=== PATIENT | female | born 1945 | race Caucasian/White ===

== ENCOUNTER 2023-01-18 07:38 | Day surgery (SDC) | payer MEDICARE, SELFPAY ==
[2023-01-13 10:19] VITALS: BMI 25.5
--- NOTE | 2023-01-15 07:47 | MHC.SHP ---
Pre-Procedural Eval Section A Date of Service: 01/15/23 The patient is an INPATIENT: No Changes since office visit: No Cold of Flu in the past 2 weeks, No New Medical Problems, No Changes in Medication and No Patient answered all questions The History & Physical has been completed within 30 days and I have reviewed it.: Yes Section B Chief Complaint: Age-related nuclear cataract, left eye Allergies: Allergies Allergy/AdvReac Type Severity Reaction Status Date / Time enoxaparin [From Lovenox] Allergy Intermediate funny Verified 01/13/23 09:54 sensation latex Allergy Intermediate Hypertensio Verified 01/13/23 09:51 n metronidazole [Flagyl] Allergy Intermediate Rash Verified 01/13/23 09:51 rosuvastatin [Crestor] AdvReac Intermediate loss of Verified 01/13/23 09:51 muscle tone Plan Diagnosis/Plan: Unchanged I have reviewed the history and physical and performed a pertinent physical examination on my patient. No changes have occurred unless specified. Time Spent With Patient Time: Total time managing care of this patient today ____ minutes.
--- NOTE | 2023-01-15 10:48 | P.CONAN_ITS ---
Documented by User: Aurelia Hendrix NP 01/15/23 10:49 HPI - Anesthesia Eval Consult details Narrative: 78yo F for Left Cataract Extraction IOL Insertion PCP cleared No previous cataract on record PMHx: CHF, CAD, Aortic Stenosis PMFSH Active Problems Active Problems: All Active Problems (Updated 01/13/23 @ 10:22 by Pily Corbin RN) Atopic dermatitis (Acute) Past Medical History Medical History (Updated 01/13/23 @ 10:22 by Pily Corbin RN) CHF (congestive heart failure) Aortic stenosis Stevens's palsy Osteoporosis Hypothyroid Elevated cholesterol HTN (hypertension) Pulmonary embolism Diverticulosis Angina pectoris CAD (coronary artery disease) Surgical History Surgical History (Updated 01/13/23 @ 09:56 by Pily Corbin RN) Hx of heart artery stent H/O colonoscopy History of open reduction and internal fixation (ORIF) procedure Hx of cholecystectomy Social History Social History Patient Tobacco Use Status: Never used Tobacco Use of substances other than those prescribed or required for medical reasons: No Advance Directives Information Provided: Yes Advance Directives on File: No Nutrition Risks: Surgical patient >75years Meds Allergies Allergy/AdvReac Type Severity Reaction Status Date / Time enoxaparin [From Lovenox] Allergy Intermediate funny Verified 01/13/23 09:54 sensation latex Allergy Intermediate Hypertensio Verified 01/13/23 09:51 n metronidazole [Flagyl] Allergy Intermediate Rash Verified 01/13/23 09:51 rosuvastatin [Crestor] AdvReac Intermediate loss of Verified 01/13/23 09:51 muscle tone Home Medications Medication Instructions Recorded Confirmed Last Taken Type levothyroxine 112 mcg tablet 112 mcg PO BEDTIME 09/04/20 01/13/23 Unknown History aspirin 81 mg tablet,delayed 81 mg PO DAILY 01/13/23 01/13/23 Unknown History release clopidogrel 75 mg tablet 75 mg PO DAILY 01/13/23 01/13/23 Unknown History isosorbide mononitrate 10 mg tablet 10 mg PO DAILY 01/13/23 01/13/23 Unknown History nitroglycerin 0.4 mg sublingual 0.4 mg sublingual Q5M PRN Chest 01/13/23 01/13/23 Unknown History tablet Pain Exam Exam Date and Time: January 15, 2023 1048 Height,Weight and Vital Signs: Height 4 ft 11 in Weight 57.3 kg Assessment and Plan Assessment Anesthesia Assessment: Chart Reviewed Documented by User: Riley Gray MD 01/18/23 08:26 [facility] Past Medical History Medical History (Updated 01/13/23 @ 10:22 by Pily Corbin RN) CHF (congestive heart failure) Aortic stenosis Stevens's palsy Osteoporosis Hypothyroid Elevated cholesterol HTN (hypertension) Pulmonary embolism Diverticulosis Angina pectoris CAD (coronary artery disease) Family History Family history of problems with anesthesia: No Surgical History Surgical History (Updated 01/13/23 @ 09:56 by Pily Corbin RN) Hx of heart artery stent H/O colonoscopy History of open reduction and internal fixation (ORIF) procedure Hx of cholecystectomy History of Problems with Anesthesia: No Social History Social History Patient Tobacco Use Status: Never used Tobacco Use of substances other than those prescribed or required for medical reasons: No Advance Directives Information Provided: Yes Advance Directives on File: No Nutrition Risks: Surgical patient >75years Meds Allergies Allergy/AdvReac Type Severity Reaction Status Date / Time enoxaparin [From Lovenox] Allergy Intermediate funny Verified 01/13/23 09:54 sensation latex Allergy Intermediate Hypertensio Verified 01/13/23 09:51 n metronidazole [Flagyl] Allergy Intermediate Rash Verified 01/13/23 09:51 rosuvastatin [Crestor] AdvReac Intermediate loss of Verified 01/13/23 09:51 muscle tone Home Medications Medication Instructions Recorded Confirmed Last Taken Type levothyroxine 112 mcg tablet 112 mcg PO BEDTIME 09/04/20 01/13/23 Unknown History aspirin 81 mg tablet,delayed 81 mg PO DAILY 01/13/23 01/13/23 Unknown History release clopidogrel 75 mg tablet 75 mg PO DAILY 01/13/23 01/13/23 Unknown History isosorbide mononitrate 10 mg tablet 10 mg PO DAILY 01/13/23 01/13/23 Unknown History nitroglycerin 0.4 mg sublingual 0.4 mg sublingual Q5M PRN Chest 01/13/23 01/13/23 Unknown History tablet Pain Exam Airway Mallampati Class: II TM Dist: >3cm Neck ROM: Full Loose/Missing/Broken Teeth: No Heart: [id number] Lungs: cta b/l Assessment and Plan Assessment Anesthesia Assessment: Anesthesia Plan Discussed Final Anesthetic Review Family History of Problems with Anesthesia: No History of Problems with Anesthesia: No NPO: Yes ASA Class: III Final Preanesthetic Review: No Changes in Pt Med Stat, Meds/Allgs Chart Reviewed, Consent Obtained/Reviewed and Anes Risks/Benef Reviewed Patient Risk: Intermediate Procedure Risk: Intermediate Assessment/Block/Sedation in SS: Assess/Block/Sedation-SS Anesthetic Plan Anesthetic Plan: MAC: and Agree w/ Assess. and Plan Disposition: Standard PACU
[2023-01-18] MEDS: Tetracaine HCl/PF 0.5% Oph Sol 4 ML DROPS 1 DROP EYE-LEFT (08:07)
[2023-01-18] MEDS: Phenylephrine HCL 2.5% Oph SoL 2 ML BOTTLE 1 DROP EYE-LEFT ×3 (08:07→08:15)
[2023-01-18] MEDS: Lactated Ringers 500 ML 50 ML IV (08:07)
[2023-01-18] MEDS: Tropicamide 1 % Ophth Sol 3 ML BTL 1 DROP EYE-LEFT ×3 (08:08→08:15)
[2023-01-18] MEDS: Cyclopentolate 1 % Ophth Sol 2 ML DRPBTL 1 DROP EYE-LEFT ×3 (08:08→08:15)
[2023-01-18] MEDS: Ketorolac Tromethamine 0.5% Op 5 ML DROPS 1 DROP EYE-LEFT ×3 (08:10→08:15)
[2023-01-18 08:12] VITALS: BP 122/49; PULSE 57; RESP 18; TEMP 36.7; O2SAT 98
--- NOTE | 2023-01-18 09:06 | HO.PNOPHT ---
Ophthalmology Procedure Procedure Date of Service: 01/18/23 Ophthalmology Viscoelastic: Healtj Duet Dual Pack Pro Ophthalmology Lenses: TECASHLEY [id number] (18) Procedure Notes: PREOPERATIVE DIAGNOSIS: Decreased visual acuity left eye secondary to cataract POSTOPERATIVE DIAGNOSIS: Same PROCEDURE: Left cataract extraction with intraocular lens insertion SURGEON: Marco Zheng M.D. ANESTHESIA: Topical/MAC ESTIMATED BLOOD LOSS: None COMPLICATIONS: None After obtaining informed consent, the patient was brought to the operation room suite and placed in the supine position. After adequate sedation per anesthesia, topical drops of Tetracaine were given to the left eye. The eye was then prepped and draped in the usual sterile fashion. The operating room microscope was then positioned over the operative eye and a lid speculum placed. A paracentesis was created. Viscoelastic was then instilled into the anterior chamber. A three plane incision was then created temporally, utilizing a 2.85 mm keratome. Capsulotomy forceps were then utilized to create a circular tear capsulotomy. Hydrodissection and hydrodelineation were carried out until adequate mobilization of the nucleus occurred. Phacoemulsification was then utilized to remove the dense central nucleus followed by removal of the cortical material utilizing the automated aspiration irrigation unit. Viscoat elastic was instilled into the posterior capsular bag followed by placement of a posterior chamber intraocular lens without difficulty. The residual Viscoat elastic was then removed utilizing the automated IA machine. The wound was check and found to be watertight. The patient tolerated the procedure well and the lid speculum was removed. Intracameral injection of Vigamox 0.1 mL followed by a subtenon injection of Kenalog-40 0.2 mL were administered. The patient will be seen in the a.m.
[2023-01-18 09:27] VITALS: BP 107/48; PULSE 59; RESP 16; TEMP 36.6; O2SAT 95
== END 2023-01-18 09:40 | disposition home or self-care (01) ==
PROVIDERS: PCP Nurse Practitioner Adult Health; Visit Provider Ophthalmology
PROC: (CPT 66985; principal; 2023-01-18 09:10)
DX: H25.12 Age-related nuclear cataract, left eye (principal); H54.7 Unspecified visual loss; I10 Essential (primary) hypertension; E78.5 Hyperlipidemia, unspecified; E03.9 Hypothyroidism, unspecified; Z86.711 Personal history of pulmonary embolism; Z79.82 Long term (current) use of aspirin; Z79.899 Other long term (current) drug therapy
CPT/HCPCS: 66984; J2250; J3010; J3301; V2632

== ENCOUNTER 2023-02-01 07:17 | Day surgery (SDC) | payer MEDICARE, SELFPAY ==
[2023-01-13 10:24] VITALS: BMI 25.5
--- NOTE | 2023-01-28 13:43 | HO.ANESPROP2 ---
Documented by User: Aurelia Hendrix NP 01/28/23 13:44 HPI - Anesthesia Eval Consult details Narrative: 78yo F for Right Cataract Extraction IOL Insertion PCP cleared Left eye 01/18/23 with MAC: Fent 25, Midaz 1 PMFSH Active Problems Active Problems: All Active Problems (Updated 01/13/23 @ 10:22 by Pily Corbin RN) Atopic dermatitis (Acute) Past Medical History Medical History (Updated 01/13/23 @ 10:22 by Pily Corbin RN) CHF (congestive heart failure) Aortic stenosis Stevens's palsy Osteoporosis Hypothyroid Elevated cholesterol HTN (hypertension) Pulmonary embolism Diverticulosis Angina pectoris CAD (coronary artery disease) Family History Family history of problems with anesthesia: No Surgical History Surgical History (Updated 01/13/23 @ 09:56 by Pily Corbin RN) Hx of heart artery stent H/O colonoscopy History of open reduction and internal fixation (ORIF) procedure Hx of cholecystectomy History of Problems with Anesthesia: No Social History Social History Patient Tobacco Use Status: Never used Tobacco Use of substances other than those prescribed or required for medical reasons: No Advance Directives Information Provided: Yes (brochure mailed) Advance Directives on File: No Nutrition Risks: Surgical patient >75years Meds Allergies Allergy/AdvReac Type Severity Reaction Status Date / Time enoxaparin [From Lovenox] Allergy Intermediate funny Verified 01/13/23 09:54 sensation latex Allergy Intermediate Hypertensio Verified 01/13/23 09:51 n metronidazole [Flagyl] Allergy Intermediate Rash Verified 01/13/23 09:51 rosuvastatin [Crestor] AdvReac Intermediate loss of Verified 01/13/23 09:51 muscle tone Home Medications Medication Instructions Recorded Confirmed Last Taken Type levothyroxine 112 mcg tablet 112 mcg PO BEDTIME 09/04/20 01/13/23 Unknown History aspirin 81 mg tablet,delayed 81 mg PO DAILY 01/13/23 01/13/23 Unknown History release clopidogrel 75 mg tablet 75 mg PO DAILY 01/13/23 01/13/23 Unknown History isosorbide mononitrate 10 mg tablet 10 mg PO DAILY 01/13/23 01/13/23 Unknown History nitroglycerin 0.4 mg sublingual 0.4 mg sublingual Q5M PRN Chest 01/13/23 01/13/23 Unknown History tablet Pain Exam Exam Date and Time: January 28, 2023 1343 Height,Weight and Vital Signs: Height 4 ft 11 in Weight 57.3 kg Assessment and Plan Assessment Anesthesia Assessment: Chart Reviewed Final Anesthetic Review Family History of Problems with Anesthesia: No History of Problems with Anesthesia: No Documented by User: Letty Underwood MD 02/01/23 08:47 [facility] Past Medical History Medical History (Updated 01/13/23 @ 10:22 by Pily Corbin RN) CHF (congestive heart failure) Aortic stenosis Stevens's palsy Osteoporosis Hypothyroid Elevated cholesterol HTN (hypertension) Pulmonary embolism Diverticulosis Angina pectoris CAD (coronary artery disease) Surgical History Surgical History (Updated 01/13/23 @ 09:56 by Pily Corbin RN) Hx of heart artery stent H/O colonoscopy History of open reduction and internal fixation (ORIF) procedure Hx of cholecystectomy Social History Social History Patient Tobacco Use Status: Never used Tobacco Use of substances other than those prescribed or required for medical reasons: No Advance Directives Information Provided: Yes (brochure mailed) Advance Directives on File: No Nutrition Risks: Surgical patient >75years Meds Allergies Allergy/AdvReac Type Severity Reaction Status Date / Time enoxaparin [From Lovenox] Allergy Intermediate funny Verified 01/13/23 09:54 sensation latex Allergy Intermediate Hypertensio Verified 01/13/23 09:51 n metronidazole [Flagyl] Allergy Intermediate Rash Verified 01/13/23 09:51 rosuvastatin [Crestor] AdvReac Intermediate loss of Verified 01/13/23 09:51 muscle tone Home Medications Medication Instructions Recorded Confirmed Last Taken Type levothyroxine 112 mcg tablet 112 mcg PO BEDTIME 09/04/20 01/13/23 Unknown History aspirin 81 mg tablet,delayed 81 mg PO DAILY 01/13/23 01/13/23 Unknown History release clopidogrel 75 mg tablet 75 mg PO DAILY 01/13/23 01/13/23 Unknown History isosorbide mononitrate 10 mg tablet 10 mg PO DAILY 01/13/23 01/13/23 Unknown History nitroglycerin 0.4 mg sublingual 0.4 mg sublingual Q5M PRN Chest 01/13/23 01/13/23 Unknown History tablet Pain Exam Airway Mallampati Class: II TM Dist: >3cm Neck ROM: Full Assessment and Plan Assessment Anesthesia Assessment: Anesthesia Plan Discussed Final Anesthetic Review NPO: Yes ASA Class: III Final Preanesthetic Review: No Changes in Pt Med Stat, Meds/Allgs Chart Reviewed, Consent Obtained/Reviewed and Anes Risks/Benef Reviewed Patient Risk: Intermediate Procedure Risk: Low Anesthetic Plan Anesthetic Plan: MAC: Disposition: Standard PACU
[2023-02-01 07:48] VITALS: BP 114/49; PULSE 55; RESP 18; TEMP 36.6; O2SAT 100
[2023-02-01 07:49] VITALS: BMI 25.4
[2023-02-01] MEDS: Lactated Ringers 500 ML 50 ML IV (07:58)
[2023-02-01] MEDS: Ketorolac Tromethamine 0.5% Op 5 ML DROPS 1 DROP EYE-RIGHT ×3 (08:00→08:09)
[2023-02-01] MEDS: Phenylephrine HCL 2.5% Oph SoL 2 ML BOTTLE 1 DROP EYE-RIGHT ×3 (08:00→08:09)
[2023-02-01] MEDS: Tetracaine HCl/PF 0.5% Oph Sol 4 ML DROPS 1 DROP EYE-RIGHT (08:00)
[2023-02-01] MEDS: Tropicamide 1 % Ophth Sol 3 ML BTL 1 DROP EYE-RIGHT ×3 (08:00→08:09)
[2023-02-01] MEDS: Cyclopentolate 1 % Ophth Sol 2 ML DRPBTL 1 DROP EYE-RIGHT ×3 (08:01→08:10)
--- NOTE | 2023-02-01 08:42 | HO.PNOPHT ---
Ophthalmology Procedure Procedure Date of Service: 02/01/23 Ophthalmology Viscoelastic: Healtj Sunt Dual Pack Pro Ophthalmology Lenses: TECASHLEY [id number] (18) Procedure Notes: PREOPERATIVE DIAGNOSIS: Decreased visual acuity right eye secondary to cataract POSTOPERATIVE DIAGNOSIS: Same PROCEDURE: Right cataract extraction with intraocular lens insertion SURGEON: Marco Zheng M.D. ANESTHESIA: Topical/MAC ESTIMATED BLOOD LOSS: None COMPLICATIONS: None After obtaining informed consent, the patient was brought to the operating room suite and placed in the supine position. After adequate sedation per anesthesia, topical drops of Tetracaine were given to the right eye. The eye was then prepped and draped in the usual sterile fashion. The operating room microscope was then positioned over the operative eye and a lid speculum placed. A paracentesis was created. Viscoelastic was then instilled into the anterior chamber. A three plane incision was then created temporally, utilizing a 2.85 mm keratome. Capsulotomy forceps were then utilized to create a circular tear capsulotomy. Hydrodissection and hydrodelineation were carried out until adequate mobilization of the nucleus occurred. Phacoemulsification was then utilized to remove the dense central nucleus followed by removal of the cortical material utilizing the automated aspiration irrigation unit. Viscoelastic was instilled into the posterior capsular bag followed by placement of a posterior chamber intraocular lens without difficulty. The residual Viscoelastic was then removed utilizing the automated IA machine. The wound was checked and found to be watertight. The patient tolerated the procedure well and the lid speculum was removed. Intracameral injection of Vigamox 0.1 mL followed by a subtenon injection of Kenalog-40 0.2 mL were administered. The patient will be seen in the a.m.
[2023-02-01 09:13] VITALS: BP 122/56; PULSE 56; RESP 16; TEMP 36.4; O2SAT 100
== END 2023-02-01 09:23 | disposition home or self-care (01) ==
PROVIDERS: PCP Nurse Practitioner Adult Health; Visit Provider Ophthalmology
PROC: (CPT 66985; principal; 2023-02-01 09:10)
DX: H25.11 Age-related nuclear cataract, right eye (principal); H52.4 Presbyopia; H18.413 Arcus senilis, bilateral; E03.9 Hypothyroidism, unspecified; E78.00 Pure hypercholesterolemia, unspecified; I35.0 Nonrheumatic aortic (valve) stenosis; I25.10 Atherosclerotic heart disease of native coronary artery without angina pectoris; Z95.5 Presence of coronary angioplasty implant and graft; Z79.82 Long term (current) use of aspirin; Z79.899 Other long term (current) drug therapy; Z88.1 Allergy status to other antibiotic agents; Z91.040 Latex allergy status
CPT/HCPCS: 66984; J2250; J3301; V2632

== ENCOUNTER 2023-02-10 13:27 | Emergency (ER) | payer MEDICARE, SELFPAY ==
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
[2023-02-10 13:55] VITALS: BP 156/78; PULSE 67; RESP 16; TEMP 36.8; O2SAT 99; BMI 25.1
--- NOTE | 2023-02-10 14:39 | ED.WOUNDLAC ---
HPI - Wound/Laceration General Chief Complaint: Wound/Laceration Stated Complaint: Head Lac 02/10/23 Time Seen by Provider: 02/10/23 13:55 Source: patient and RN notes reviewed Mode of arrival: ambulatory Limitations: no limitations History of Present Illness HPI narrative: This is a 78-year-old female, with a history of CHF, aortic stenosis, Stevens's palsy, osteoporosis, hypothyroidism, hyperlipidemia, hypertension, pulmonary embolism, diverticulosis, angina pectoralis, coronary artery disease on Plavix, presenting to the emergency department for evaluation of head injury which occurred just prior to her arrival. Patient states that she tripped and fell striking her forehead on the ground. She denies loss of consciousness. She initially thought she had a bloody nose but proceeded into her home when her saw that she was bleeding from her forehead. She denies any current symptoms. No headaches, dizziness, lightheadedness, changes in vision, chest pain, shortness of breath, abdominal pain, nausea, vomiting or diarrhea. No other complaints or concerns at this time. Onset (ago): minute(s) Location: face Place: home Context: accidental and fall Associated symptoms: pain Treatments prior to arrival: bandage Related Data Home Medications Medication Instructions Recorded Confirmed levothyroxine 112 mcg tablet 112 mcg PO BEDTIME 09/04/20 01/13/23 aspirin 81 mg tablet,delayed 81 mg PO DAILY 01/13/23 01/13/23 release clopidogrel 75 mg tablet 75 mg PO DAILY 01/13/23 01/13/23 isosorbide mononitrate 10 mg tablet 10 mg PO DAILY 01/13/23 01/13/23 nitroglycerin 0.4 mg sublingual 0.4 mg sublingual Q5M PRN Chest 01/13/23 01/13/23 tablet Pain Previous Rx's Medication Instructions Recorded cephalexin 500 mg capsule 500 mg PO QID 5 days #20 caps 02/10/23 Allergies Allergy/AdvReac Type Severity Reaction Status Date / Time enoxaparin [From Lovenox] Allergy Intermediate funny Verified 01/13/23 09:54 sensation latex Allergy Intermediate Hypertensio Verified 01/13/23 09:51 n metronidazole [Flagyl] Allergy Intermediate Rash Verified 01/13/23 09:51 rosuvastatin [Crestor] AdvReac Intermediate loss of Verified 01/13/23 09:51 muscle tone Review of Systems Review of Systems: Yes all other systems are reviewed and are negative Constitutional: Constitutional: Reports as per HPI [facility] Past Medical History Medical History (Updated 02/10/23 @ 17:03 by LEWIS Siddiqui) CHF (congestive heart failure) Aortic stenosis Stevens's palsy Osteoporosis Hypothyroid Elevated cholesterol HTN (hypertension) Pulmonary embolism Diverticulosis Angina pectoris CAD (coronary artery disease) Surgical History (Updated 01/13/23 @ 09:56 by Pily Corbin RN) Hx of heart artery stent H/O colonoscopy History of open reduction and internal fixation (ORIF) procedure Hx of cholecystectomy Social History Social History Patient Tobacco Use Status: Never used Tobacco Advance Directives: No Advance Directives Information Provided: No Physical Exam Vital Signs: Vital Signs: Last Vital Signs Temp 98.2 F 02/10/23 13:55 Pulse 67 02/10/23 13:55 Resp 16 02/10/23 13:55 BP 156/78 H 02/10/23 13:55 Pulse Ox 99 02/10/23 13:55 O2 Del Method Room Air 02/10/23 13:55 BMI result Body Mass Index 25.1 Const: General: cooperative, comfortable and no acute distress Orientation/consciousness: patient oriented x3 Limitations: no limitations HEENT: Head: Yes normal to inspection, Yes normocephalic and Yes atraumatic Ears: hearing grossly normal bilaterally General nose exam: Normal external nose present Face and sinus: Yes normal facial exam Mouth: Normal oral and palatal mucosa present, oropharynx normal and moist mucous membranes Throat: Yes posterior oropharynx normal Eyes: General: appearance normal, both eyes and all related structures Eyelids: Yes eyelids normal Conjunctivae: conjunctivae normal Sclerae: sclerae normal Pupils: Equal, round and reactive pupils present EOM: EOMs intact bilaterally Neck: Other: No cervical midline spine tenderness Neck: Yes normal visual inspection, Yes full ROM and Yes no lymphadenopathy Lymphatic: no lymphadenopathy noted Chest: Chest palpation & inspection: normal inspection of the chest Resp: Effort & Inspection: normal respiratory effort and able to speak in complete sentences Auscultation: clear to auscultation bilaterally, no crackles, no rales, no rhonchi and no wheezes Cardio: Rate: regular rate Rhythm: regular rhythm Heart sounds: S1 normal heart sound present and S2 normal heart sound present GI: Inspection: Yes normal to inspection Skin: Other: 1.5 cm linear partial-thickness laceration noted to the mid forehead. Active drainage noted. Surrounding hematoma noted General skin exam: no rashes or lesions noted Trauma: no lacerations or abrasions Wounds: no wounds Neuro: General: patient oriented x3 and moves all extremities Cranial nerves: Yes Equal, round and reactive pupils present Extrem: General: Yes normal to inspection Right upper extremity: normal to inspection Left upper extremity: normal to inspection Right lower extremity: normal to inspection Left lower extremity: normal to inspection Course Reevaluation(s) Reevaluation #1: Wound closed using 3 6-0 nylon sutures. Patient tolerated procedure well without any complications or concerns. CT head and neck unremarkable for any acute injury. Discussed all these findings with patient. Given good wound care instructions. Tetanus updated in department today. Answered all questions. Given return precautions. Patient stable for discharge. Time: 17:11 Medications Administered Discontinued Medications Generic Name Dose Route Start Last Admin Trade Name Freq PRN Reason Stop Dose Admin Lidocaine/Epinephrine 10 ml 02/10/23 15:42 02/10/23 16:00 Lidocaine Hcl 2% Pf/Epi 1:200 10 Ml Vial INFILTRATI 02/10/23 15:43 Not Given ONCE ONE Lidocaine/Epinephrine 10 ml 02/10/23 15:49 02/10/23 16:00 Lidocaine Hcl 1%/Epi 1:100,000 10 Ml Vial INFILTRATI 02/10/23 15:50 10 ml ONCE ONE Administration Medical Decision Making Medical Decision Making MDM Narrative: This is a 78-year-old female presenting to the emergency department for evaluation of head injury which occurred just prior to her arrival. On arrival vital signs revealing mildly hypertensive at 156/78, all other vital signs within normal limits. Patient is neurologically intact. Wound actively bleeding and forehead, patient is on Plavix therefore pressure dressing was applied. Plan: CT head, CT C-spine Differential Diagnosis Differential Diagnoses: The differential diagnosis associated with the presentation includes ICH, laceration, closed head injury Admission/Observation Consideration of admission/observation: Escalation of care including admission/observation considered Escalation of care including admission or observation was considered given head trauma while on Plavix Radiology Impression Discussion of test interpretation with radiology: I have reviewed the radiologist's reading. Procedures Laceration Laceration 1: Site: face Description: linear Depth: simple, single layer Local Anesthetic: lidocaine 2% and with epi Amount of anesthesia used (mL): 4 Pre-repair: wound explored, irrigated extensively and deep structures intact Skin layer closed with: nylon Size (cm): 6-0 Number of sutures: 3 Technique: simple, interrupted Discharge Plan Discharge Clinical Impression: Laceration of head, Head injury Patient Disposition: Home, Self-Care Instructions: Laceration (ED) Additional Instructions: You presented to the ER today for a head wound. Your head CT showed no bleeding. Your CT c-spine showed degenerative changes, no new fracture. We close your forehead laceration with 3 sutures. These need to be removed in 5 days. You may return, or follow-up with your primary care physician to have this removed. Please keep wound clean and dry. You can shower. Pat wound dry. Do not pick at w do not submerge wound in water, no bathing or hot tubs. We are putting you on prophylactic antibiotics to ensure no wound infection. If any redness, increased swelling, fevers, or chills occur please return for re-evaluation. Please watch for any changes neurologically. If any concerns arise, please return for re-evaluation. Prescriptions: New cephalexin 500 mg capsule 500 mg PO QID 5 Days Qty: 20 0RF No Action aspirin [Aspirin Low-Strength] 81 mg Tablet,Delayed Release (Dr/Ec) 81 mg PO DAILY nitroglycerin 0.4 mg tablet, sublingual 0.4 mg sublingual Q5M PRN (Reason: Chest Pain) isosorbide mononitrate 10 mg tablet 10 mg PO DAILY clopidogrel 75 mg tablet 75 mg PO DAILY levothyroxine 112 mcg tablet 112 mcg PO BEDTIME
[2023-02-10] MEDS: Lidocaine HCl 1%/Epi 1:100,000 10 ML VIAL INFILTRATI (16:00)
[2023-02-10] MEDS: Diphth,Pertus(ACell),Tet Adult 0.5 ML SYRINGE IM (17:19)
== END 2023-02-10 17:27 | disposition home or self-care (01) ==
PROVIDERS: Emergency Provider Emergency Medicine; PCP Nurse Practitioner Adult Health
DX: S09.90XA Unspecified injury of head, initial encounter (principal); S01.81XA Laceration without foreign body of other part of head, initial encounter; W01.198A Fall on same level from slipping, tripping and stumbling with subsequent striking against other object, initial encounter; Y93.89 Activity, other specified; Y92.410 Unspecified street and highway as the place of occurrence of the external cause; Y99.9 Unspecified external cause status
CPT/HCPCS: 12011; 70450; 72125; 90471; 90715; 99282; 99284

== ENCOUNTER 2023-02-15 12:36 | Emergency (ER) | payer MEDICARE, SELFPAY ==
--- NOTE | 2023-02-15 12:40 | ED_ITS ---
HPI - Skin/Abscess/Foreign Bdy General Chief complaint: General Medical Stated complaint: Suture removal Time Seen by Provider: 02/15/23 12:48 Source: patient and RN notes reviewed Mode of arrival: ambulatory Limitations: no limitations History of Present Illness HPI narrative: This is a 78-year-old female, with a history of CHF, aortic stenosis, Stevens's palsy, osteoporosis, hypothyroidism, hyperlipidemia, hypertension, pulmonary embolism, diverticulosis, angina pectoralis, coronary artery disease on Plavix, presenting to the emergency department with a complaint of suture removal. utures replaced on 02/10. Patient tolerated the sutures well without any complications. She is feeling well, no current complaints. No fevers or chills, dizziness or headaches. No other complaints or concerns at this time. MD complaint: laceration Relieving factors: none Exacerbating factors: none Context: none Associated symptoms: denies other symptoms Treatments prior to arrival: none Related Data Home Medications Medication Instructions Recorded Confirmed levothyroxine 112 mcg tablet 112 mcg PO BEDTIME 09/04/20 01/13/23 aspirin 81 mg tablet,delayed 81 mg PO DAILY 01/13/23 01/13/23 release clopidogrel 75 mg tablet 75 mg PO DAILY 01/13/23 01/13/23 isosorbide mononitrate 10 mg tablet 10 mg PO DAILY 01/13/23 01/13/23 nitroglycerin 0.4 mg sublingual 0.4 mg sublingual Q5M PRN Chest 01/13/23 01/13/23 tablet Pain Previous Rx's Medication Instructions Recorded cephalexin 500 mg capsule 500 mg PO QID 5 days #20 caps 02/10/23 Allergies Allergy/AdvReac Type Severity Reaction Status Date / Time enoxaparin [From Lovenox] Allergy Intermediate funny Verified 02/15/23 12:45 sensation latex Allergy Intermediate Hypertensio Verified 02/15/23 12:45 n metronidazole [Flagyl] Allergy Intermediate Rash Verified 02/15/23 12:45 rosuvastatin [Crestor] AdvReac Intermediate loss of Verified 02/15/23 12:45 muscle tone Review of Systems Review of Systems: Yes all other systems are reviewed and are negative [facility] Past Medical History Medical History (Updated 02/15/23 @ 12:45 by LEWIS Siddiqui) CHF (congestive heart failure) Aortic stenosis Stevens's palsy Osteoporosis Hypothyroid Elevated cholesterol HTN (hypertension) Pulmonary embolism Diverticulosis Angina pectoris CAD (coronary artery disease) Surgical History (Updated 01/13/23 @ 09:56 by Pily Corbin RN) Hx of heart artery stent H/O colonoscopy History of open reduction and internal fixation (ORIF) procedure Hx of cholecystectomy Social History Social History Patient Tobacco Use Status: Never used Tobacco Physical Exam Vital Signs: Vital Signs: Last Vital Signs Temp 97.7 F 02/15/23 12:42 Pulse 67 02/15/23 12:42 Resp 18 02/15/23 12:42 BP 183/70 H 02/15/23 12:42 Pulse Ox 99 02/15/23 12:42 O2 Del Method Room Air 02/15/23 12:42 BMI result Body Mass Index 26.0 Const: Other: General: Awake, alert, and oriented X3. No acute distress. HEENT: Normal inspection CVS: Normal heart rate and rhythm. Pulses normal. Respiratory: No respiratory distress Skin: 1.5 cm laceration noted to forehead with [address], well healed. no surrounding erythema or edema. Healing ecchymosis noted around wound and around right eye, nontender Neuro: Oriented X 3. No motor deficit. No sensory deficit. Medical Decision Making Medical Decision Making MDM Narrative: 78-year-old female presenting to the emergency department for suture removal. Sutures replaced on 02/10. Patient tolerated the sutures well without any complications. She is feeling well, no current complaints. No fevers or chills. Wound well healed with [address] They were removed without any complications or concerns. Patient given wound care instructions, advised to return with any new or worsening symptoms. Patient stable for discharge. Differential Diagnosis Differential Diagnoses: The differential diagnosis associated with the presentation includes Cellulitis, wound dehiscence, suture removal Discharge Plan Discharge Clinical Impression: Encounter for removal of sutures Patient Disposition: Home, Self-Care Instructions: Stitches Removal (ED) Additional Instructions: You presented to the ER for your sutures to be removed. Please keep area clean and dry. Watch for any signs of infection. Follow up with your primary care physician. If any new or worsening symptoms occur, please return for re-evaluation. Prescriptions: No Action aspirin [Aspirin Low-Strength] 81 mg Tablet,Delayed Release (Dr/Ec) 81 mg PO DAILY nitroglycerin 0.4 mg tablet, sublingual 0.4 mg sublingual Q5M PRN (Reason: Chest Pain) isosorbide mononitrate 10 mg tablet 10 mg PO DAILY clopidogrel 75 mg tablet 75 mg PO DAILY cephalexin 500 mg capsule 500 mg PO QID 5 Days Qty: 20 0RF levothyroxine 112 mcg tablet 112 mcg PO BEDTIME Interventions: ED Discharge Assessment Last Done: 02/15/23 12:54 Discharge Date/Time: 02/15/23 12:55
[2023-02-15 12:42] VITALS: BP 183/70; PULSE 67; RESP 18; TEMP 36.5; O2SAT 99; BMI 26.0
== END 2023-02-15 13:23 | disposition home or self-care (01) ==
LOC: HO.ED 12:52
PROVIDERS: Emergency Provider Student in an Organized Health Care Education/Training Program; PCP Nurse Practitioner Adult Health
DX: Z48.02 Encounter for removal of sutures (principal)
CPT/HCPCS: 99282

== ENCOUNTER 2023-12-03 09:11 | Outpatient (AMB) | payer MEDICARE, SELFPAY ==
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
== END 2023-12-03 10:03 | disposition home or self-care (01) ==
PROVIDERS: PCP Nurse Practitioner Adult Health; Visit Provider Physician Assistant
DX: M54.9 Dorsalgia, unspecified (principal)
CPT/HCPCS: 99204

== ENCOUNTER → 2023-12-03 09:11 | Outpatient (BNVA) | payer MEDICARE, SELFPAY | PROVIDERS: PCP Nurse Practitioner Adult Health; Visit Provider Physician Assistant | DX: S32.000A Wedge compression fracture of unspecified lumbar vertebra, initial encounter for closed fracture (principal); I25.10 Atherosclerotic heart disease of native coronary artery without angina pectoris; I11.0 Hypertensive heart disease with heart failure; I50.30 Unspecified diastolic (congestive) heart failure; X58.XXXA Exposure to other specified factors, initial encounter; Y93.9 Activity, unspecified; Y92.9 Unspecified place or not applicable; Y99.9 Unspecified external cause status; Z79.899 Other long term (current) drug therapy | CPT/HCPCS: 99202 ==

== ENCOUNTER 2023-12-24 11:21 | Outpatient (AMB) | payer MEDICARE, SELFPAY ==
--- NOTE | 2023-12-24 12:01 | HO.SPINEOV ---
Intake Visit Reasons: MRI f/u Intake Note: Mrs. Argueta is here today to F/u on the results of her MRI. [employer] Deputy Director Required: No Allergies enoxaparin [From Lovenox] Allergy (Intermediate, Verified 12/24/23 12:02) funny sensation latex Allergy (Intermediate, Verified 12/24/23 12:02) Hypertension metronidazole [Flagyl] Allergy (Intermediate, Verified 12/24/23 12:02) Rash rosuvastatin [Crestor] Adverse Reaction (Intermediate, Verified 12/24/23 12:02) loss of muscle tone Assessment & Plan Assessment & Plan (1) Back pain: Code(s): M54.9 - Dorsalgia, unspecified Category: Medical Plan Mrs Argueta is back today to review her MRI done at [facility]. Indeed this shows what we suspect that is that she has an acute L4 compression fracture. She has been battling with the symptoms now for about 4-5 months. She is tried to continue to be active but the pain does limit her. She is strongly considering a kyphoplasty. We went over the procedure again. I will review everything with Dr. Whiting by think she would otherwise be a good candidate. It would be general anesthesia, but day surgery which she is very pleased about. She would however need to come off her Plavix 10 days prior to surgery. With regard to her leg pain, we discussed the fact that she does have other degenerative findings around her fracture that could explain nerve pain, but that fixing that would be more involved and the leg pain is generally not bad enough that she thinks she would want to consider any kind of decompression etc.. So we would be strictly talking about treating the acute back pain and the L4 compression fracture with a kyphoplasty. The patient will think about it and get back to me how she would like to proceed. In the meantime I will review everything with Dr. Whiting again. Total amount of time spent in this visit was 20 minutes in discussion of symptoms, lumbar MRI imaging results and subsequent plan of care Davide Whiting MD,PhD [facility] Coding Level of Care Code Est Pt Level 3 (46015) Diagnoses Back pain M54.9
== END 2023-12-24 12:35 | disposition home or self-care (01) ==
PROVIDERS: PCP Nurse Practitioner Adult Health; Visit Provider Physician Assistant
DX: M54.9 Dorsalgia, unspecified (principal)
CPT/HCPCS: 99213

== ENCOUNTER → 2023-12-24 11:21 | Outpatient (BNVA) | payer MEDICARE, SELFPAY | PROVIDERS: PCP Nurse Practitioner Adult Health; Visit Provider Physician Assistant | DX: M54.9 Dorsalgia, unspecified (principal); Z71.2 Person consulting for explanation of examination or test findings | CPT/HCPCS: 99212 ==